=== PATIENT | female | born 2000 | race Caucasian/White ===

== ENCOUNTER 2025-02-18 16:51 | Emergency (ER) | payer OTHER, SELFPAY ==
[2025-02-18 16:53] VITALS: BP 122/81; PULSE 76; RESP 17; TEMP 37.2; O2SAT 97; BMI 35.6
--- NOTE | 2025-02-18 17:42 | EX.ED.GENINJ ---
HPI History of Present Illness Chief Complaint: Head Injury Narrative Narrative: 24-year-old female who denies significant past medical history presents after hitting her head on a metal shelf yesterday evening while at work. This was almost 24 hours ago. She states she was reaching into the shelving unit, and she stood up too quickly, striking the back of her head on the metal shelf. She denies loss of consciousness. She struck the back of her head. She does not take any blood thinners. She denies any neck pain. She may have had slight nausea but no vomiting. Additionally, she felt lightheaded and dizzy today at work. [facility] who in turn sent her here to the emergency department because this was a head injury. She may have slight problems with concentration/brain fog. PFSH PFSH Allergy/AdvReac Type Severity Reaction Status Date / Time coconut Allergy Intermediate Itching Verified 02/18/25 16:56 ROS ROS ED ROS Narrative Review of systems positive for closed head injury, and tenderness of occipital scalp. Positive for lightheadedness and dizziness with brain fog. Positive nausea but no vomiting. No paresthesias of arms or legs. No exacerbating or alleviating factors. EXAM Physical Exam Narrative Exam Narrative: GCS 15. ABCs intact. HEENT examination shows mild tenderness in the occipital area of the scalp but no palpable hematoma, no crepitance. Neck soft and supple without meningismus. No vertebral point tenderness or bony step-off. PERRL, EOMI. Airway patent. No drooling or trismus. Cardiovascular examination regular rate and rhythm. Lungs are clear to auscultation bilaterally. The abdomen is soft and nontender with positive bowel sounds, no guarding or rebound. Neurological examination shows her to be awake, alert, oriented x 3. Nonfocal, nonlateralizing. Const Vital Signs: 02/18/25 16:53 Temperature 98.9 F Temperature Source Oral Pulse Rate 76 Respiratory Rate 17 Blood Pressure 122/81 H Blood Pressure Mean 94 Pulse Ox 97 Oxygen Delivery Method Room Air MDM MDM MDM Narrative Medical decision making narrative: Differential diagnosis includes but not limited to intracranial hemorrhage versus scalp contusion versus hematoma versus mild concussion. I do not feel CT is indicated. She is not on blood thinners, her incident happened almost 24 hours ago, and there was no loss of consciousness. Instead, I feel she can take duti-[id number]-[id number] medications such as ibuprofen or Tylenol, and she was instructed on brain rest. She should not lift or carry anything over 20 pounds and allow her to sit or stand for patient comfort, and avoid activities involving risk of hitting head again. These are in place until cleared by her [facility] [place] provider of choice/[facility]. I feel she can be discharged to follow-up. Return instructions were reviewed. Disposition is discharged home in stable condition. History & Record Review Discussion w/independent historian: Patient Additional record(s) reviewed:: Prior ED visit (No prior ED visits) Discharge Plan Triage Chief Complaint: Head Injury ED Provider: Flako Claudio Dx/Rx/DC Orders Clinical Impression: Closed head injury, Mild concussion, Contusion of occipital region of scalp Instructions: ED Concussion, ED Scalp Contusion, ED Head Injury (Adult) Primary Care Provider: Care Physician,No Primary Referrals: [facility] [Provider Group] - 3-5 Days if not improving Care Physician,No Primary [Primary Care Provider, Medical] Activity Restrictions/Additional Instructions: Follow-up with the [facility] for complete return to work. Your symptoms should resolve in the next 7 to 10 days. [id number] medications such as ibuprofen or Tylenol as needed for pain. Return with new or worsening symptoms. Print Language: Kenyan Disposition Disposition: Home, Self Care
[2025-02-18 17:53] VITALS: BP 125/83; PULSE 60; RESP 16; O2SAT 100
[2025-02-18 18:14] VITALS: BP 125/83; PULSE 60; RESP 16; TEMP 36.8; O2SAT 100
== END 2025-02-18 18:16 | disposition home or self-care (01) ==
LOC: ED 18:01
PROVIDERS: Emergency Provider Emergency Medicine; Visit Provider Emergency Medicine
DX: S00.03XA Contusion of scalp, initial encounter (principal); S06.0XAA Concussion with loss of consciousness status unknown, initial encounter; X58.XXXA Exposure to other specified factors, initial encounter
CPT/HCPCS: 99282